=== PATIENT | male | born 1975 | race Caucasian/White ===

== ENCOUNTER 2020-06-16 08:26 | Outpatient (CLI) | payer OTHER ==
[2020-06-16] MEDS ORDERED: OXYC10TA6 PO (09:04)
[2020-06-16] MEDS ORDERED: MORP-29 PO (09:04)
[2020-06-16] MEDS ORDERED: MULT-758 PO (09:27)
[2020-06-16] MEDS ORDERED: IBUP-1223 PO (09:27)
[2020-06-16 09:35] LABS: BASOPHILS # (AUTO) 0.04 x10^3/uL (0-0.1); BASOPHILS % (AUTO) 0 % (0-1); EOSINOPHILS # (AUTO) 0.09 x10^3/uL (0-0.4); EOSINOPHILS % (AUTO) 1 % (1-7); LYMPHOCYTES # (AUTO) 2.35 x10^3/uL (1-3.4); LYMPHOCYTES % (AUTO) 20 % (22-44); MD NO; MEAN CORPUSCULAR HEMOGLOBIN 29.8 pg (27.5-34.5); MEAN CORPUSCULAR HGB CONC 32.6 g/dL (33.2-36.2); MEAN PLATELET VOLUME 8.4 fL (7.4-10.4); MONOCYTES # (AUTO) 0.68 x10^3/uL (0.2-0.8); MONOCYTES % (AUTO) 6 % (2-9); NEUTROPHILS # (AUTO) 8.55 x10^3/uL (1.8-6.8); NEUTROPHILS % (AUTO) 73 % (42-75); PLATELET COUNT 210 x10^3/uL (130-400); RED BLOOD COUNT 5.32 x10^6/uL (4.38-5.82); RED CELL DISTRIBUTION WIDTH 14.2 % (9.4-14.8)
[2020-06-16 09:44] LABS: INTERNATIONAL NORMALIZED RATIO 0.99 (0.93-1.1); PROTHROMBIN TIME 10.5 Seconds (9.6-11.5)
[2020-06-16 09:46] LABS: ALANINE AMINOTRANSFERASE 84 U/L (12-78); ALBUMIN 4.5 g/dL (3.4-5.0); ANION GAP 6 mmol/L (5-15); CALCIUM 8.8 mg/dL (8.5-10.1); CHLORIDE 111 mmol/L (98-107); CREATININE 1.15 mg/dL (0.7-1.3)
[2020-06-16 09:47] LABS: ALKALINE PHOSPHATASE 58 U/L (45-117); TOTAL PROTEIN 7.1 g/dL (6.4-8.2)
== END 2020-06-16 23:59 | disposition home or self-care (01) ==
LOC: STAR 08:26
PROVIDERS: ATTEND Orthopaedic Surgery
DX: Z01.818 Encounter for other preprocedural examination (principal); M16.12 Unilateral primary osteoarthritis, left hip; Z79.01 Long term (current) use of anticoagulants
CPT/HCPCS: 36415; 80053; 83036; 85025; 85610; 85730; 87081; 87147; 87806; 93005; G0475

== ENCOUNTER 2020-06-20 06:58 | Observation (INO) | payer OTHER ==
[~2020-06-20] VITALS: Ht 180.3 cm; Wt 100.9 kg
[~2020-06-20 06:58] MED LIST: EPINEPHRINE 1 MG/ML, 1ML ONE; IBUP-1223 PO; KETOROLAC 60 MG/2 ML ONE; MORP-29 PO; MULT-758 PO; OXYC10TA6 PO; ROPIvacaine/PF 0.2%, 20 ML ONE; SODIUM CHLORIDE 0.9% 50 ML ONE; TRANEXAMIC ACID 100 MG/ML, 10ML ONE
[2020-06-20] MEDS ORDERED: ROPIvacaine/PF 0.2%, 20 ML ONE (07:00)
[2020-06-20] MEDS ORDERED: LACTATED RINGERS 1,000 ML IV SCH (07:39)
[2020-06-20 07:43] VITALS: BP 141/94
[2020-06-20] MEDS ORDERED: CHLORHEXIDINE 15 ML UDC ONE (07:49)
[2020-06-20] MEDS ORDERED: VANCOMYCIN PER PHARMACY MC PRN (08:00)
[2020-06-20] MEDS ORDERED: ACETAMINOPHEN 500 MG TABLET PO ONE (08:00)
[2020-06-20] MEDS ORDERED: GABAPENTIN 300 MG CAPSULE PO ONE (08:00)
[2020-06-20] MEDS ORDERED: CHLORHEXIDINE 15 ML UDC MM ONE (08:00)
[2020-06-20] MEDS ORDERED: VANCOMYCIN 1,500 MG in SODIUM CHLORIDE 0.9% 250 ML IV ONE (08:00)
[2020-06-20] MEDS ORDERED: morphine SULFATE/PF 1 MG/ML, 10ML ONE (08:38)
[2020-06-20] MEDS ORDERED: MIDAZOLAM 1 MG/ML, 2ML ONE (08:47)
[2020-06-20] MEDS ORDERED: FENTANYL PF 250 MCG/5ML ONE (08:47)
[2020-06-20] MEDS ORDERED: KETAMINE 10 MG/ML, 20ML ONE (09:12)
[2020-06-20] MEDS ORDERED: MAGNESIUM SULFATE 1 GM/2 ML ONE (09:12)
[2020-06-20] MEDS ORDERED: GLYCOPYRROLATE 0.2MG/1ML, 5ML ONE (09:16)
[2020-06-20] MEDS ORDERED: METOCLOPRAMIDE 5 MG/ML, 2ML ONE (09:16)
[2020-06-20] MEDS ORDERED: ONDANSETRON 2MG/ML, 2ML ONE (09:16)
[2020-06-20] MEDS ORDERED: CEFAZOLIN 1,000 MG ONE (09:16)
[2020-06-20] MEDS ORDERED: LIDOCAINE-MPF 2% ,5ML ONE (09:16)
[2020-06-20] MEDS ORDERED: PROPOFOL 10 MG/ML, 50ML ONE (09:16)
[2020-06-20] MEDS ORDERED: DEXAMETHASONE 4 MG/ML, 1ML ONE (09:16)
[2020-06-20] MEDS ORDERED: NEOSTIGMINE 1 MG/ML, 10ML ONE (09:16)
[2020-06-20] MEDS ORDERED: ZOLPIDEM 5MG TABLET PO PRN (09:30)
[2020-06-20] MEDS ORDERED: POLYETHYLENE GLYCOL 17 GM PACKET PO PRN (09:30)
[2020-06-20] MEDS ORDERED: DIPHENHYDRAMINE 25 MG CAPSULE PO PRN (09:30)
[2020-06-20] MEDS ORDERED: ONDANSETRON 4 MG TABLET PO PRN (09:30)
[2020-06-20] MEDS: KETOROLAC 30 MG/1 ML IV SCH ×2 (09:30→17:15)
[2020-06-20] MEDS ORDERED: LORazepam 1MG TABLET PO PRN (09:30)
[2020-06-20] MEDS ORDERED: SENNA/DOCUSATE TABLET PO PRN (09:30)
[2020-06-20] MEDS ORDERED: ONDANSETRON 2MG/ML, 2ML IVPush PRN ×2 (09:30→10:00)
[2020-06-20] MEDS ORDERED: DIPHENHYDRAMINE 50 MG/ML, 1ML IVPush PRN (09:30)
[2020-06-20] MEDS ORDERED: MAGNESIUM HYDROXIDE 8%, 30ML UDC PO PRN (09:30)
[2020-06-20] MEDS ORDERED: TEMAZEPAM 15 MG CAPSULE PO PRN (09:30)
[2020-06-20] MEDS ORDERED: ALUMINUM/MAG/SIMETHICONE 30 ML UDC PO PRN (09:30)
[2020-06-20] MEDS ORDERED: DIAZEPAM 5 MG TABLET PO PRN (09:30)
[2020-06-20] MEDS ORDERED: ACETAMINOPHEN 650 MG/20.3 ML UDC PO PRN (09:30)
[2020-06-20] MEDS ORDERED: HALOPERIDOL 5 MG/ML IV PRN (10:00)
[2020-06-20] MEDS ORDERED: OXYcodone 5 MG/5 ML ORAL.SOL UDC PO PRN (10:00)
[2020-06-20] MEDS ORDERED: MEPERIDINE/PF 25MG/0.5ML IVPush PRN (10:00)
[2020-06-20] MEDS ORDERED: METHOCARBAMOL 1,000 MG in DEXTROSE 5% 100 ML IV PRN (10:00)
[2020-06-20] MEDS ORDERED: DIAZEPAM 5 MG/ML, 2ML IVPush PRN (10:00)
[2020-06-20] MEDS ORDERED: PROMETHAZINE 25 MG/ML, 1ML IVPush PRN (10:00)
[2020-06-20] MEDS ORDERED: HYDROmorphone 2 MG/ML, 1ML ONE (11:14)
[2020-06-20] MEDS ORDERED: OXYcodone 5 MG/5 ML ORAL.SOL UDC ONE (11:14)
[2020-06-20] MEDS ORDERED: FENTANYL PF 100 MCG/2ML ONE (11:14)
[2020-06-20] MEDS: FENTANYL PF 100 MCG/2ML IV PRN ×2 (11:19→11:29)
[2020-06-20] MEDS ORDERED: LORazepam 2 MG/ML, 1ML ONE (11:20)
[2020-06-20] MEDS: LORazepam 2 MG/ML, 1ML IVPush PRN ×5 (11:22→17:08)
[2020-06-20] MEDS ORDERED: MEPERIDINE/PF 25MG/ML,1ML ONE (11:35)
[2020-06-20] MEDS: HYDROmorphone 1 MG/ML, 1ML INJ IVPush PRN ×3 (11:49→23:20)
[2020-06-20] MEDS ORDERED: TRANEXAMIC ACID 1,000 MG in SODIUM CHLORIDE 0.9% 100 ML IVPB ONE (12:00)
[2020-06-20 15:00] VITALS: BP 112/71
[2020-06-20] MEDS ORDERED: PHARMACOKINETIC MONITORING MC PRN (16:30)
[2020-06-20] MEDS ORDERED: PHARMACOKINETIC CONSULTATION MC ONE (16:30)
[2020-06-20] MEDS: D5%-0.45NACL+KCL 20MEQ 1,000 ML IV SCH (16:55)
[2020-06-20] MEDS: OXYcodone IR 5MG TABLET PO PRN ×2 (17:16→21:19)
[2020-06-20] MEDS: ASPIRIN 81 MG TABLET EC PO SCH (18:39)
[2020-06-20] MEDS: ACETAMINOPHEN 325 MG TABLET PO SCH ×2 (18:40→21:19)
[2020-06-20 20:35] VITALS: BP 101/62
[2020-06-20] MEDS ORDERED: GABAPENTIN 300 MG CAPSULE PO SCH (21:00)
[2020-06-20] MEDS: DOCUSATE 100 MG CAPSULE PO SCH (21:19)
[2020-06-20] MEDS: CEFAZOLIN PMX 1GM/50ML 50 ML IVPB SCH (21:19)
[2020-06-21 00:05] VITALS: BP 92/55
[2020-06-21] MEDS: D5%-0.45NACL+KCL 20MEQ 1,000 ML IV SCH ×2 (02:10→02:49)
[2020-06-21] MEDS: ACETAMINOPHEN 325 MG TABLET PO SCH ×4 (02:17→12:29)
[2020-06-21] MEDS: OXYcodone IR 5MG TABLET PO PRN ×3 (02:17→12:01)
[2020-06-21] MEDS: KETOROLAC 30 MG/1 ML IV SCH (02:17)
[2020-06-21] MEDS: HYDROmorphone 1 MG/ML, 1ML INJ IVPush PRN (05:28)
[2020-06-21] MEDS: CEFAZOLIN PMX 1GM/50ML 50 ML IVPB SCH (05:28)
[2020-06-21 05:48] VITALS: BP 154/88
[2020-06-21] MEDS ORDERED: VANCOMYCIN 2,000 MG in SODIUM CHLORIDE 0.9% 500 ML IV SCH (06:00)
[2020-06-21] MEDS ORDERED: DEXAMETHASONE 4 MG/ML, 1ML IVPush SCH (06:00)
[2020-06-21 07:30] VITALS: BP 106/63
[2020-06-21] MEDS: ASPIRIN 81 MG TABLET EC PO SCH (08:07)
[2020-06-21] MEDS: DOCUSATE 100 MG CAPSULE PO SCH (08:08)
[2020-06-21] MEDS ORDERED: TAMSULOSIN 0.4 MG CAP.ER.24H PO SCH (09:00)
[2020-06-21 11:48] VITALS: BP 108/61
== END 2020-06-21 12:50 | disposition home or self-care (01) ==
LOC: OUT 06:58 → ORIP 09:12 → 4NE 14:59 → DCLOUNGE 06-21 12:35
PROVIDERS: ADMIT Orthopaedic Surgery; ATTEND Orthopaedic Surgery
DX: Z03.818 Encounter for observation for suspected exposure to other biological agents ruled out (principal); M87.852 Other osteonecrosis, left femur; M16.12 Unilateral primary osteoarthritis, left hip; Z79.899 Other long term (current) drug therapy
CPT/HCPCS: 27130; 36415; 72170; 85014; 85018; 86850; 86900; 87635; 96365; 96366; 96367; 96375; 96376; 97161; 97165; C1713; C1776; G0378; J0171; J0690; J1100; J1170; J1885; J2060; J2175; J2250; J2274; J2405; J2704; J2710; J2765; J2795; J3010; J3370; J3475; J3480; J3490; J7040; J7050

== ENCOUNTER 2020-09-04 13:59 | Emergency (ER) | payer OTHER ==
[~2020-09-04] VITALS: Ht 177.8 cm; Wt 106.6 kg
[~2020-09-04 13:59] MED LIST changes: -EPINEPHRINE 1 MG/ML, 1ML ONE; -KETOROLAC 60 MG/2 ML ONE; -ROPIvacaine/PF 0.2%, 20 ML ONE; -SODIUM CHLORIDE 0.9% 50 ML ONE; -TRANEXAMIC ACID 100 MG/ML, 10ML ONE
[2020-09-04 14:15] VITALS: BP 149/97
--- NOTE | 2020-09-04 14:44 | NUR ---
PT CAME IN CO OF LEFT HIP PAIN AFTER HIS THR ON JUNE 20. "MY LEFT LEG IS CONSIDERABLY LONGER THAN THE RIGHT. IM IN PAIN. ITS SWELLING. THE SURGEON BLEW ME OFF." PT IS RESTING IN RPOMPEY. CONNECTED TO MONITORING EQUIPMENT
[2020-09-04] MEDS ORDERED: OXYcodone/APAP 5/325MG TABLET ONE (16:07)
[2020-09-04] MEDS ORDERED: OXYcodone/APAP 5/325MG TABLET PO ONE (16:30)
[2020-09-04 17:32] LABS: HCT (SEDRATE) 42.2 % (39.2-51.8)
== END 2020-09-04 18:06 | disposition home or self-care (01) ==
LOC: ED 16:39
DX: M25.552 Pain in left hip (principal); Z96.641 Presence of right artificial hip joint
CPT/HCPCS: 36415; 85651; 86140; 99284

== ENCOUNTER → 2020-10-05 | Outpatient (CLI) | payer OTHER ==
[~2020-10-05] MED LIST changes: +OXYC15TA3 PO
[2020-10-05 12:16] LABS: BASOPHILS % (AUTO) 1 % (0-1); EOSINOPHILS % (AUTO) 1 % (1-7); LYMPHOCYTES % (AUTO) 10 % (22-44); MEAN CORPUSCULAR HEMOGLOBIN 29.8 pg (27.5-34.5); MEAN CORPUSCULAR HGB CONC 33.8 g/dL (33.2-36.2); MEAN PLATELET VOLUME 9.1 fL (7.4-10.4); MONOCYTES % (AUTO) 9 % (2-9); NEUTROPHILS % (AUTO) 80 % (42-75); PLATELET COUNT 217 x10^3/uL (130-400); RED BLOOD COUNT 5.69 x10^6/uL (4.38-5.82); RED CELL DISTRIBUTION WIDTH 14.4 % (9.4-14.8)
[2020-10-05 12:17] LABS: INTERNATIONAL NORMALIZED RATIO 1.02 (0.93-1.1); PROTHROMBIN TIME 10.8 Seconds (9.6-11.5)
[2020-10-05 12:19] LABS: ALBUMIN 4.4 g/dL (3.4-5.0); ANION GAP 4 mmol/L (5-15); CALCIUM 9.5 mg/dL (8.5-10.1); CHLORIDE 111 mmol/L (98-107)
[2020-10-05 12:23] LABS: ALANINE AMINOTRANSFERASE 45 U/L (12-78); ALKALINE PHOSPHATASE 69 U/L (45-117); BILIRUBIN,TOTAL 0.7 mg/dL (0.2-1.0); CREATININE 1.15 mg/dL (0.7-1.3); TOTAL PROTEIN 7.8 g/dL (6.4-8.2)
[2020-10-05 12:31] LABS: MD NO
== END | disposition home or self-care (01) ==
LOC: STAR 10:10
PROVIDERS: ATTEND Orthopaedic Surgery
DX: U07.1 COVID-19 (principal); Z01.810 Encounter for preprocedural cardiovascular examination; Z01.818 Encounter for other preprocedural examination; R00.0 Tachycardia, unspecified; Z96.641 Presence of right artificial hip joint; Z79.01 Long term (current) use of anticoagulants
CPT/HCPCS: 80053; 83036; 85025; 85610; 85730; 87081; 87147; 87635; 87806; 93005; G0475

== ENCOUNTER → 2020-12-09 | Outpatient (CLI) | payer OTHER | END | disposition home or self-care (01) | LOC: RAD 16:53 | PROVIDERS: ATTEND Physician Assistant Surgical | DX: M25.551 Pain in right hip (principal); Z96.641 Presence of right artificial hip joint ==